=== PATIENT | female | born 1930 | race Caucasian/White ===

== ENCOUNTER 2016-05-06 17:37 | Inpatient (IN) | payer MEDICARE, OTHER ==
[~2016-05-06] VITALS: Ht 165.1 cm; Wt 80.7 kg
[~2016-05-06 17:37] MED LIST: ACET325T51 PO; ALBU8.5H2 INHALATION; AMLO5TAB2 PO; APIX5TAB PO; ATOR80TA PO; CALC1CAP PO; ESOM40CA41 PO; HYDR25TA4 PO; INSU100I13 SUBQ; LEVO125T2 PO; LISI-571 PO; LORA10CA PO; MAGN250T37 PO; METF1000 PO; METO-274 PO; TRAM50TA2 PO
[2016-05-06 17:40] VITALS: BP 158/86; PULSE 81; RESP 25; O2SAT 94
[2016-05-06 18:22] VITALS: BP 156/83; PULSE 78; RESP 23; O2SAT 94
--- NOTE | 2016-05-06 18:28 | DRSVH ---
PROCEDURE: X-RAY CHEST ONE VIEW, PORTABLE ([id number]) INDICATIONS: CHEST PAIN TECHNIQUE: One view of the chest was acquired. COMPARISON: [facility], , CHEST 1VW (PORTABLE), 03/06/2014, 15:16. [facility], CR, CHEST 1VW (PORTABLE), 03/10/2014, 8:39. FINDINGS: Surgical changes and devices: Dual-lead cardiac pacer is stable. Left shoulder arthroplasty. Lungs and pleura: No pleural effusions or pneumothorax. Interstitial prominence stable compared to p rior examinations. Mild cephalization of pulmonary vasculature. Mediastinum: Mediastinal contours appear normal. Heart size is enlarged. Bones and chest wall: No suspicious bony lesions. Overlying soft tissues appear unremarkable. IMPRESSION: Mild cephalization of pulmonary vasculature possibly representing early CHF. Dictated by: Claudia Arreola MD, PhD on 05/06/2016 at 18:25 Approved by: Claudia Arreola MD, PhD on 05/06/2016 at 18:26
[2016-05-06 18:35] LABS: BASOPHILS % (AUTO) 0.4 % (0-3); EOSINOPHILS % (AUTO) 0.9 % (0-5); MONOCYTES % (AUTO) 9.6 % (4-12); Mean Corpuscular Hemoglobin 28.1 pg (27.0-35.0); Mean Corpuscular Volume 84.5 fL (81-100); NEUTROPHILS % (AUTO) 60.3 % (40-74); Platelet Count 253 bil/L (150-400)
[2016-05-06 19:00] LABS: TROPONIN T < 0.010 ug/L (0.0-0.011)
--- NOTE | 2016-05-06 19:03 | ED.REPORT ---
HPI-Dyspnea / Wheezing Date of Service May 06, 2016 ED Provider: José Manuel Escobar MD An 86 year old female w/ a hx of DM, HTN, CHF, A-fib, and pacemaker who presents to the ED via EMS complaining of SOB for the last 4 weeks. Last night at 10pm her symptoms increased in severity and she felt like, "she was going to ." She was unable to fall asleep due to SOB, diaphoresis, and difficulty breathing. She was going to call an ambulance but she just moved to a new apartment and the phone wasn't set up yet. She took Metoprolol and HCTZ and was finally able to fall asleep. She has never felt symptoms this severe before and does not use O2 at home. At the ED, SAT 94% on 1L. She denies chest pain, fever , cough. She cannot lay down flat to sleep. Nursing Notes Stated Complaint: INCREASED SOB,CHEST PAIN Chief Complaint: Respiratory Distress Allergies: Coded Allergies: Sulfa (Sulfonamide Antibiotics) (Verified Allergy, Unknown, 05/06/16) amiodarone (Verified Adverse Reaction, Intermediate, 05/06/16) NAUSEA dronedarone (Verified Adverse Reaction, Intermediate, 05/06/16) losartan (Verified Adverse Reaction, Intermediate, angioedema, 05/06/16) Uncoded Allergies: Sulfa drug (Allergy, Intermediate, Rash,Itching,, 11/24/14) Scheduled Acetaminophen (Acetaminophen) 325 Mg Tablet 650 MG PO HS NEEDED Amlodipine (Amlodipine) 5 Mg Tablet 5 MG PO DAILY Apixaban (Eliquis) 5 Mg Tablet 5 MG PO BID Atorvastatin (Lipitor) 80 Mg Tablet 80 MG PO DAILY Calcium Carbonate/Vitamin D3 (Liquid Calcium with Vitamin D) 1 Each Capsule 2 EACH PO DAILY Esomeprazole Magnesium (Nexium) 40 Mg Capsule.dr 40 MG PO DAILY Hydrochlorothiazide (Hydrochlorothiazide) 25 Mg Tablet 25 MG PO DAILY Insulin Glargine (Lantus U100 Solostar Insulin Pen) 100 Unit/1 Ml Insuln.pen 30 UNIT SUBQ TID Levothyroxine (Synthroid) 125 Mcg Tablet 125 MCG PO DAILY Lisinopril (Lisinopril) 5 Mg Tablet 5 MG PO DAILY Magnesium Oxide (Magnesium Oxide) 250 Mg Tablet 250 MG PO BID Metformin (Glucophage) 1,000 Mg Tablet 1,000 MG PO BID Metoprolol Succinate ER (Metoprolol Succinate ER) 100 Mg Tab.er.24h 100 MG PO BID Scheduled PRN Albuterol HFA (Proair HFA) 8.5 Gm Hfa.aer.ad 2 PUFFS INHALATION Q4H PRN PRN For Shortness of Breath Loratadine (Claritin) 10 Mg Capsule 10 MG PO DAILY PRN PRN For Congestion Tramadol (Tramadol) 50 Mg Tablet 50-100 MG PO HS PRN PRN For Pain General Time Seen by MD: 19:02 Chief Complaint Shortness of breath Hx Obtained From: Patient Arrived By: Walk-in Sudden in Onset?: Yes Onset Occurred: Yesterday Symptom Duration: Since onset Past Medical History Past Medical History Notes: On Pradaxa Past Medical History Tachybradycardia syndrome s/p dual chamber pacemaker implantation Cosby's esophagus Idiopathic cardiomyopathy Polymyalgia rheumatica Atrial fibrillation with paroxysmal atrial flutter CHF with chronic orthopnea Reports: Congestive heart failure, Diabetes mellitus, GERD, Hyperlipidemia, Hypertension Past Surgical History 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 Reports: Appendectomy, Hysterectomy, Tonsillectomy Reports: Pacemaker insertion Smoking History Former Smoker Social History Alcohol Use: Denies alcohol use Drug Use: Denies drug use Other Social History: Lives alone, Local resident Ambulatory Status Independent Review of Systems Constitutional: Denies: Fever Respiratory: Reports: Shortness of breath, Denies: Non-productive cough Cardiovascular: Denies: Chest pain Skin: Reports Diaphoresis Complete sys rev & neg: except as marked. Physical Exam Physical Exam Notes: Initial Vital Signs Vital Signs (First) Date Time Temp Pulse Resp B/P Pulse Ox O2 Delivery O2 Flow Rate FiO2 05/06/16 17:40 36.7 81 25 158/86 94 Nasal Cannula 2 Initial VS: Reviewed Head / Eyes: Atraumatic, Normocephalic, PERRL ENT: Mucous membranes moist, Conjunctiva normal Skin: Warm, Dry Psychiatric: Mood/affect normal, Behavior normal General/Constitutional: Awake, Alert, Cooperative Neck Vascular: Positive: JVD mild Respiratory / Chest: No rhonchi, No wheezing Rales / Rhonchi: Positive: Rales bilateral bases bibasal crackles Cardiovascular: Heart rate NL, Regular rhythm, Heart sounds NL pacemaker implant Abdomen: Atraumatic, BS normoactive Lower Extremity / Pelvis / MS: Atraumatic, Inspection NL, No edema Interpretation & Diagnostics Lab Results Interpretation Result Diagram: 05/06/163 05/06/163 Test 05/06/16 18:23 White Blood Count 7.8th/mm3 (3.8-10.1) Red Blood Count 4.45mil/mm3 (3.90-5.20) Hemoglobin 12.5g/dL (12.0-15.6) Hematocrit 37.6% (35.0-46.0) Mean Corpuscular Volume 84.5fL (81-100) Mean Corpuscular Hemoglobin 28.1pg (27.0-35.0) Mean Corpuscular Hemoglobin Concent 33.2% (32.0-37.0) Red Cell Distribution Width 18.6% (12.3-15.4) Platelet Count 253bil/L (150-400) Neutrophils (%) (Auto) 60.3% (40-74) Lymphocytes (%) (Auto) 28.7% (14-46) Monocytes (%) (Auto) 9.6% (4-12) Eosinophils (%) (Auto) 0.9% (0-5) Basophils (%) (Auto) 0.4% (0-3) Activated Partial Thromboplast Time 25.0sec (22.8-33.0) Sodium Level 136mEq/L (134-144) Potassium Level 4.0mEq/L (3.5-5.2) Chloride Level 98mEq/L (97-108) Carbon Dioxide Level 20mmol/L (18-29) Blood Urea Nitrogen 15mg/dL (8-27) Creatinine 0.82mg/dL (0.57-1.00) Estimat Glomerular Filtration Rate 95mL/min (>59) Glucose Level 344mg/dL (60-99) Calcium Level 7.8mg/dL (8.5-10.1) Magnesium Level 1.7mg/dL (1.6-2.6) Total Bilirubin 0.4mg/dL (0.0-1.2) Aspartate Amino Transf (AST/SGOT) 28U/L (0-50) Alanine Aminotransferase (ALT/SGPT) 30U/L (0-32) Alkaline Phosphatase 83U/L (25-165) Troponin T < 0.010ug/L (0.0-0.011) Pro-B-Type Natriuretic Peptide 8607pg/mL (0-738) Total Protein 6.6g/dL (6.4-8.4) Albumin 3.6g/dL (3.4-5.0) Thyroid Stimulating Hormone (TSH) 0.222uIU/mL (0.450-4.500) ECG Interpretation Time: 18:17 Interpreted by: ED physician Rhythm / Conduction: Atrial fibrillation (rate 71), Ventricular paced rhythm X-Ray Chest Interpretation Chest Xray Interpretation: IMPRESSION: Mild cephalization of pulmonary vasculature possibly representing early CHF. Dictated by: Claudia Arreola MD, PhD on 05/06/2016 at 18:25 Approved by: Claudia Arreola MD, PhD on 05/06/2016 at 18:26 View: Portable Interpretation / Wet Read by: Interpret - Radiologist Re-Eval/Medical Decision Med Decision/Clinical Course Dyspneic with low RA sat, normal trop and elevated BNP. Does not appear infected or to have acue ischemia. Lasix 20m IV given. Admit to hospitalist Re-Evaluation/Progress : Time of Eval: 20:03 Patient Status: Condition unchanged Re-Evaluation/Progress Note: Pt rechecked. Plan for water pill and need for admission. Code status discussed: No code Pt understands and agrees with plan. All questions addressed. 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 Counseled Regarding: Diagnosis, Lab results, Need for admission Discharge & Departure Impression: Primary Impression: CHF (congestive heart failure) Congestive heart failure type: unspecified congestive heart failure type Congestive heart failure chronicity: unspecified congestive heart failure chronicity Qualified Code: I50.9 - Heart failure, unspecified Disposition: ADMITTED TO HOSPITAL Discharge Condition All VS Reviewed: Yes Condition: Stable Referrals: Jaquan Santamaria DO (PCP) Yaquelin Sparks MD Scribe Attestation Portion of this note were transcribed by Elodia Espinoza. I, Dr. Escobar, personally performed the history, physical exam, and medical decision-making: I reviewed and confirmed the accuracy for the information in the transcribed note. Signed by: hansa Manrique, 05/06/16 2100 copies to: Jaquan Santamaria DO; Yaquelin Sparks MD, Donald L MD May 06, 2016 19:03 Elodia Espinoza May 06, 2016 19:22
[2016-05-06 19:05] LABS: Magnesium 1.7 mg/dL (1.6-2.6)
[2016-05-06] MEDS ORDERED: Furosemide 10 mg/mL 4 mL Inj IVPUSH ONE (20:20)
[2016-05-06] MEDS ORDERED: Polyethylene Glycol (PEG) 17 Gm Powder PO PRN (21:00)
[2016-05-06] MEDS ORDERED: Alum-Mag Hydrox-Simeth 30 mL Suspension PO PRN ×2 (21:00→21:05)
[2016-05-06] MEDS ORDERED: Senna-Docusate 8.6-50 mg Tablet PO PRN (21:00)
[2016-05-06] MEDS ORDERED: Ondansetron 2 mg/mL 2 mL Inj IVPUSH PRN ×2 (21:00→21:05)
[2016-05-06 21:01] VITALS: BP 133/62; PULSE 73; RESP 25; O2SAT 95
--- NOTE | 2016-05-06 21:16 | PCM.HPMED ---
Subjective Date of Service May 06, 2016 Primary Provider: Admitting Physician: Allan Peter MD Primary Care Physician: Jaquan Santamaria DO Attending Physician: Allan Peter MD Admit Status: From the Emergency Department, Remote Telemetry Chief Complaint: Increased SOB History of Present Illness: Ms. Fe Tellez is an 86 year old pleasant woman with history of DM, HTN, CHF , A-fib, and tachybradycardia syndrome s/p dual chamber pacemaker placement who presents to the ED via EMS complaining of progressively worsening SOB in the last 3 months. Before bed last night, she could not breathe and felt like, "she was going to ." She was unable to fall asleep due to SOB, diaphoresis, and difficulty breathing. She was going to call an ambulance but she just moved to a new apartment and the phone wasn't set up yet. She took her home dose of Metoprolol and HCTZ and was finally able to fall asleep. Today, she saw her PCP , Dr. Jaquan Santamaria, and was sent to the ED from his office. Patient reports to have chronic dyspnea for months, but it has not been this bad. She does not use O2 at home and is pretty independent at baseline. She uses Albuterol inhaler as needed for SOB. Patient reports worsening lower extremity edema, orthopnea, and weight gain, but denies cough, chest pain, fever, chills, nausea, vomiting, abdominal pain, or headache. No history of COPD or asthma. She had been to the hospital several times for the Afib, but this is the first time she is here for CHF. She reports to have an Echo done 2 weeks ago, but it is not on her record. She is on Apixaban for anticoagulation. She got both the Flu and Pneumonia shots this year, but got Flu 2-3 months ago. She used to inject Lantus 5 units TID, but has stopped doing so 6 weeks ago due to low blood glucose at night. In the ED, she had temp 36.7, Pulse 81, RR 25, BP 158/86, and SAT 94% on 1L. WBC wnl. CMP normal except for BG of 344. ProBNP 8607. CXR is suggestive of CHF. Patient received a dose of Lasix 40 Review of Systems: A comprehensive review of systems was conducted with the patient and found to be negative except as above in the History of Present Illness. Allergies Coded Allergies: Sulfa (Sulfonamide Antibiotics) (Verified Allergy, Unknown, 05/07/16) amiodarone (Verified Adverse Reaction, Intermediate, 05/07/16) NAUSEA dronedarone (Verified Adverse Reaction, Intermediate, 05/07/16) losartan (Verified Adverse Reaction, Intermediate, angioedema, 05/07/16) Uncoded Allergies: Sulfa drug (Allergy, Intermediate, Rash,Itching,, 11/24/14) Home Medications Per [facility] Medication Name Directions ALBUTEROL SULFATE HFA 90 MCG/ACTUATION AEROSOL INHALER INHALE 2 PUFF BY INHALATION ROUTE EVERY 4 - 6 HOURS NEEDED Contour Test Strips #100/boxSTRIP use to test blood sugar 2-4 times daily Eliquis 5 mg tablet take 1 tablet by oral route 2 times every day Humalog KwikPen 100 unit/mL subcutaneous 10 units sc tid with meals Lantus Solostar 100 unit/mL (3 mL) subcutaneous insulin pen 20 units sc bid Lipitor 80 mg tablet Take 1 tablet by mouth daily for high cholesterol. Liquid Calcium with Vitamin D 600 mg calcium-200 unit capsule 2 po daily magnesium oxide 250 mg tablet one pill twice a day, or you can take them both at once metformin 1,000 mg tablet TAKE 1 TABLET TWICE A DAY WITH MORNING AND EVENING MEALS metoprolol succinate ER 100 mg tablet,extended release 24 hr Take 2 pills in AM and 1 in PM Nexium 40 mg capsule,delayed release 1 po bid Synthroid 125 mcg tablet take 1 tablet by oral route every day TYLENOL EXTRA STRENGTH take 1 (650mg) tablet by oral route every 6 hours as needed PMH Per [facility] Migraine Diverticulitis Acquired renal cystic disease Microscopic hematuria Diabetes mellitus type 2, uncontrolled Constipation Tachy-jaime syndrome Angioedema Murmur Osteoporosis Hypoparathyroidism Osteoarthritis HTN (hypertension) CAD Tubular adenoma Complete heart block GERD (gastroesophageal reflux disease) Cosby esophagus PMR (polymyalgia rheumatica) Afib Hypothyroid Also GIST tumor Surgical History 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 Reports: Appendectomy, Hysterectomy, Tonsillectomy Reports: Pacemaker insertion Family History Patient denies significant family history of DM and cardiovascular disease. Social History Hx Alcohol Use: No Hx Substance Use: No Hx Tobacco Use: No Smoking Status: Former Smoker (smoked for a short time in her teens) Living Arrangement: Alone Additional Information She lives by herself in an apartment. Her son visits her sometimes. New PCP is Dr. Jaquan Santamaria. Clinical Research Associate is Dr. Dnucan. Exam Vital Signs Vital Sign - Last Date Time Temp Pulse Resp B/P Pulse Ox O2 Delivery O2 Flow Rate FiO2 05/06/16 21:01 36.3 73 25 133/62 95 Nasal Cannula 2 Exam General: No acute distress, well-developed, well-nourished, pleasant, appropriately interactive HEENT: Normocephalic, atraumatic. External ears without defect. Pupils equal, round, and reactive to light and accommodation. Anicteric sclerae, moist conjunctivae, and no lid lag. Dry mucosa. Neck: Supple with full range of motion. Small jugular venous distension. No lymphadenopathy or thyromegaly. Cardiovascular: Chest wall with pacemaker implant palpated. Regular rate and rhythm with no murmurs, rubs, or gallops appreciated Pulmonary: Clear to auscultation with mild bibasilar rales. No wheezes or rhonchi. Normal respiratory effort with no use of accessory muscles. Abdomen: Bowel tones present. Soft, nontender, nondistended. No hepatosplenomegaly or masses appreciated. Extremities: +1/mild pitting edema in bilateral lower extremities around the wells. No pedal edema. No clubbing, cyanosis, edema, or lymphadenopathy appreciated. Skin: Normal temperature, turgor, and texture; no rash, ulcers, or subcutaneous nodules appreciated. Neurological: Cranial nerves grossly intact. Normal muscle strength, tone, and bulk. Reflexes, coordination, and sensory function within normal limits. No known gait impairment. Psychiatric: Normal mood and affect. Alert and oriented to person, place, and time. Lab and Diagnostics Result Diagram: 05/06/16182205/06/161822 X-Rays, CTs and MRIs PROCEDURE: X-RAY CHEST ONE VIEW, PORTABLE IMPRESSION: Mild cephalization of pulmonary vasculature possibly representing early CHF. Dictated by: Claudia Arreola MD, PhD on 05/06/2016 at 18:25 Approved by: Claudia Arreola MD, PhD on 05/06/2016 at 18:26 12-lead ECG Afib with rate of 71 on EKG. Ventricular paced rhythm. Cardiac Echo Impressions Per [facility], last Echo was in 07/2014 that showed normal Echo interpreted by Monika March. No EF estimation. Assessment & Plan 86 year old pleasant woman with history of DM, HTN, CHF, A-fib, and tachybradycardia syndrome s/p dual chamber pacemaker placement who presents to the ED via EMS complaining of worsening SOB in the last 3 months. 1. Progressive dyspnea, acute on chronic, present on admission, active. - Likely secondary to CHF exacerbation. - Treat the underlying cause(s) - O2 supplement available. Keep O2>90%. - Albuterol inhaler PRN 2. Acute on chronic CHF exacerbation, present on admission, active. - Unknown if diastolic or systolic dysfunction. - Patient presents with worsening lower extremity edema ("skinny legs" at baseline), increasing dyspnea, orthopnea, and fatigue. - BNP of 8607 and CXR consistent with CHF - Last Echo per [facility] was in 07/2014 that was normal. No EF estimation. - Will repeat Echo in the morning. - Patient is not on Lasix at home. She received one dose of Lasix 40mg IV in the ER. Will continue Lasix 40mg IV daily. - Potassium normal at 4 on admission. Will continue to monitor and replete as needed. - Resume home dose of Metoprolol and Lisinopril after med rec. - Strict I/O and daily standing weight. 3. Chronic atrial fibrillation, present on admission, stable. - Rate controlled with Metoprolol. HR is 71. - Continue Metoprolol and Apixaban - Monitor Telemetry 4. Insulin-using Diabetes Mellitus, Type 2, chronic,uncontrolled. -Last HgbA1c 13.0 in 11/2015 per [facility]. Uncontrol due to noncompliance. -Check A1c. -Hold home Metformin. -Will start Lantus 5 units HS and gradually titrate up. Also placed on high correctional insulin in the hospital. -Diabetic education ordered. -Heart healthy/diabetic diet. 5. Surgical induced hypothyroidism, chronic. - Check TSH and free T4 - Resume home Levothyroxine 125mcg after med rec. 6. HTN, chronic, stable. -Resume home Amlodipine, Lisinopril, HCTZ, Metoprolol after med rec. 7. Hyperlipidemia, chronic, presume stable. - Continue Atorvastatin. - Check lipid panel in the morning. 8. Medication reconciliation: need to be done by day team. CODE STATUS: DNR/DNI per the patient. Patient is admitted under inpatient status with expected length of stay greater than 2 midnights due to severity of presenting symptoms, risk of adverse event, and complexity of treatment plan. Pain Evaluation: Adequate Pain Control GI Prophylaxis: Proton Pump Inhibitor VTE Prophylaxis: Other (Apixaban) Resuscitation Status: DNR/DNI:Do Not Resuscitate/Intubate Attending Statement The patient was seen and examined together with Dr. Moreno on 05/06 and I agree with the history, exam and plan as outlined in the note above. copies to: Jaquan Santamaria Ngochanh H DO May 06, 2016 21:16 Allan Peter MD May 06, 2016 23:02 VTE Prophylaxis: Other (Apixaban) Resuscitation Status: DNR/DNI:Do Not Resuscitate/Intubate Scooter Moreno DO May 06, 2016 21:16
[2016-05-06 21:20] VITALS: PULSE 72
[2016-05-06 21:33] VITALS: BP 151/83; PULSE 73; RESP 20; O2SAT 97
[2016-05-06] MEDS ORDERED: Glucose 40% Oral Gel 15 Gm Tube PO PRN (23:55)
[2016-05-07] VITALS (7 sets, daily range): BP systolic 123–152; BP diastolic 70–91; PULSE 60–95; RESP 20; O2SAT 93–98
[2016-05-07] MEDS: Sodium Chloride LOK Flush 10 mL Syringe IVFLUSH SCH ×4 (00:49→20:32)
[2016-05-07] MEDS ORDERED: Albuterol 2.5 mg/3 mL Inhalation Solution NEB PRN (00:52)
[2016-05-07 06:17] LABS: BASOPHILS % (AUTO) 0.5 % (0-3); EOSINOPHILS % (AUTO) 1.8 % (0-5); MONOCYTES % (AUTO) 10.5 % (4-12); Mean Corpuscular Volume 84.6 fL (81-100); NEUTROPHILS % (AUTO) 55.1 % (40-74); Platelet Count 265 bil/L (150-400)
[2016-05-07 06:34] LABS: Magnesium 1.6 mg/dL (1.6-2.6)
[2016-05-07] MEDS ORDERED: Furosemide 10 mg/mL 4 mL Inj IVPUSH SCH (08:30)
[2016-05-07] MEDS: Insulin LISPRO 300 Unit/3 mL Inj SUBQ SCH ×4 (09:00→20:31)
[2016-05-07] MEDS ORDERED: MeTOProlol XL 50 mg ER24 Tablet PO SCH (10:35)
--- NOTE | 2016-05-07 11:29 | PCM.PNMED ---
Subjective Date of Service May 07, 2016 Subjective Fe reports she is feeling much better this morning and her breathing is back to baseline. She does not have any CP, dizziness, or increased swelling. She reports that she had just moved into a new apt that is on the 3rd floor, so getting up and down has been a bit more exhausting. She is also living alone now and it has made her slightly more anxious, so when she had some more shortness of breath yesterday, she became more anxious and also had chest pressure. All of these symptoms have improved this morning and she would like to go home when possible. Exam Vital Signs Vital Sign - Last Date Time Temp Pulse Resp B/P Pulse Ox O2 Delivery O2 Flow Rate FiO2 05/07/16 09:35 36.6 95 20 135/75 98 Room Air 05/07/16 06:39 2.00 Exam General: Well-developed, well-nourished, pleasant elderly female who appears in NAD while laying down at 45 degrees, appropriately interactive HEENT: Normocephalic, atraumatic. Anicteric sclerae, moist conjunctivae, and no lid lag. Dry mucosa. Neck: Supple with full range of motion. No JVD noted at 45 degrees Cardiovascular: Chest wall with pacemaker implant palpated. Regular rate and rhythm with no murmurs, rubs, or gallops appreciated Pulmonary: Clear to auscultation with mild bibasilar rales. No wheezes or rhonchi. Normal respiratory effort with no use of accessory muscles. Abdomen: Bowel tones present. Soft, nontender, nondistended. No hepatosplenomegaly or masses appreciated. Extremities: Trace bilateral pedal edema, No clubbing, cyanosis, edema Skin: Normal temperature, turgor, and texture; no rash, ulcers, or subcutaneous nodules appreciated. Neurological: Cranial nerves grossly intact. Normal muscle strength, tone, and bulk. Reflexes, coordination, and sensory function within normal limits Psychiatric: Normal mood and affect. Alert and oriented to person, place, and time. IVs and Medications Medications Reviewed: Medications were reviewed in detail Lab and Diagnostics Result Diagram: 05/07/1640 05/07/16 0540 X-Rays, CTs and MRIs PROCEDURE: X-RAY CHEST ONE VIEW, PORTABLE IMPRESSION: Mild cephalization of pulmonary vasculature possibly representing early CHF. Dictated by: Claudia Arreola MD, PhD on 05/06/2016 at 18:25 Approved by: Claudia Arreola MD, PhD on 05/06/2016 at 18:26 12-lead ECG Afib with rate of 71 on EKG. Ventricular paced rhythm. Cardiac Echo Impressions Per [facility], last Echo was in 07/2014 that showed normal Echo interpreted by Monika March. No EF estimation. Assessment & Plan 86 year old pleasant woman with history of DM, HTN, CHF, A-fib, and tachybradycardia syndrome s/p dual chamber pacemaker placement who presents to the ED via EMS complaining of worsening SOB in the last 3 months. 1. Progressive dyspnea, acute on chronic, present on admission, Improved - Likely due to chronic progressive dyspnea, mild CHF exacerbation, and increased stress and anxiety of living alone now - Treat the underlying cause(s) - O2 supplement available. Keep O2>90%. - Albuterol inhaler PRN 2. Acute on chronic CHF exacerbation, present on admission, active. - Patient reports that her Home Mortgage Disclosure Act Specialist diagnosed her with CHF recently. - Patient presents with worsening lower extremity edema ("skinny legs" at baseline), increasing dyspnea, orthopnea, and fatigue. - BNP of 8607 and CXR consistent with CHF - Last Echo per [facility] was in 07/2014 that was normal. No EF estimation. - Will repeat Echo in the morning. - Patient was not on Lasix at home. She received one dose of Lasix 40mg IV in the ER. Will continue Lasix 40mg IV daily today - Potassium normal at 4 on admission. Will continue to monitor and replete as needed. - Resume home dose of Metoprolol and Lisinopril after med rec. - Strict I/O and daily standing weight. - Cardiology consulting on patient today. 3. Chronic atrial fibrillation, present on admission, stable. - Rate controlled with Metoprolol. HR is 71. - Continue Metoprolol and Apixaban - Monitor Telemetry 4. Insulin-using Diabetes Mellitus, Type 2, chronic,uncontrolled. -Last HgbA1c 13.0 in 11/2015 per [facility]. Uncontrol due to noncompliance. -A1c was 6.0 this morning. -Hold home Metformin. -Will start Lantus 5 units HS and gradually titrate up. Also placed on high correctional insulin in the hospital. -Diabetic education ordered. -Heart healthy/diabetic diet. -Fasting BG noted to be 223 this morning although A1c only 6.0 5. Surgical induced hypothyroidism, chronic. - Check TSH - 0.22 and free T4 - 1.89 - Will plan to reduce Levothyroxine dosage 6. HTN, chronic, stable. -Resume home Amlodipine, Lisinopril, HCTZ, Metoprolol after med rec. 7. Hyperlipidemia, chronic, presume stable. - Continue Atorvastatin. - Elevated Trigs and LDL of 98 today. CODE STATUS: DNR/DNI per the patient. Dispo: Likely discharge tomorrow if medically stable. Pain Evaluation: Adequate Pain Control GI Prophylaxis: Proton Pump Inhibitor VTE Prophylaxis: Other (Apixaban) VTE Mechanical Devices: Intermittant Pneumatic CD Resuscitation Status: DNR/DNI:Do Not Resuscitate/Intubate Attending Statement The patient was seen and examined together with Dr. Hernandez on 05/07/2016 and I agree with the history, exam and plan as outlined in the note above. Barrie Hernandez DO May 07, 2016 11:29 Kane Thornton MD May 08, 2016 11:19
[2016-05-07] MEDS ORDERED: INSU100V7 SUBQ (12:23)
[2016-05-07] MEDS ORDERED: CHOL100043 PO (12:26)
[2016-05-07] MEDS ORDERED: Magnesium Sulf 2 Gm/50mL Water 2 GM in IV Premix 1 EACH IV ONE (13:20)
--- NOTE | 2016-05-07 14:14 | CONS ---
[address] [address] CONSULTATION REPORT PATIENT: JOSETTE JASSO : 1930 MR#: [id number] ADMIT: 05/06/2016 JOB ID: [id number] DATE OF SERVICE: 05/07/2016 CHIEF COMPLAINT: Shortness of breath. HISTORY OF PRESENT ILLNESS: The patient is a delightful 86-year-old woman with chronic atrial fibrillation and rapid history of difficult to control rate, status post AV junction ablation. She has a dual-chamber Medtronic permanent pacemaker. Cardiology is consulted to assist with worsening shortness of breath, briefly she says for the past three months the problem has been getting worse. She believes she gained 10 pounds based on her home scale. She relocated from her home on [address] to an apartment in [place], and she says that when she climbs up the stairs, she has been getting worsening shortness of breath. Cardiology is consulted to assist with management. PAST MEDICAL HISTORY: 1. Paroxysmal atrial fibrillation refractory to medical therapy, status post multiple cardioversions. Eventually, she developed chronic atrial fibrillation with rffbrtrcy-xy-brcrkrm rate and underwent a paced AV junction ablation with Dr. Heart December 09, 2015. 2. Permanent pacemaker implanted November 13, 2013. This is a Medtronic device currently programmed in VVI mode with 99%V pacing. 3. Paroxysmal atrial flutter, status post flutter ablation March 2014. 4. History of atrial septal defect, status post percutaneous closure in 2001. 5. Cardiomyopathy. Most recent catheterization in 2009 was reassuring. She has mild mid LAD disease, but it was not hemodynamically significant. 6. Most recent echocardiogram performed February 2014 demonstrated EF of 50% to 55%. 7. Diabetes - on insulin and metformin - uncontrolled. Most recent hemoglobin A1c was 13% as of November 2015. 8. Hyperlipidemia, controlled. Most recent lipids as of November 2015 showed total cholesterol 187, triglycerides 122, HDL 59, LDL 104. 9. Hypothyroidism - overreplaced with a low TSH and elevated free T4. 10. Reflux. 11. Cosby's esophagus. 12. 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 13. Incidental 5 mm gastrointestinal stromal tumor that is monitored by Oncology. 14. Status post partial parathyroidectomy. 15. Appendectomy. 16. Tonsillectomy. 17. Left humerus fracture with hemiarthroplasty. 18. Vaginal hysterectomy and right salpingo-oophorectomy. 19. Thyroidectomy. FAMILY HISTORY: Brother with diabetes. Father with Alzheimer's. Mother during World War II. Sister with colon cancer. SOCIAL HISTORY: The patient is a former smoker. She lives independently. She has supportive family. She lives in [place] where she recently relocated from [place]. HOME MEDICATIONS: 1. Lipitor 80 mg daily. 2. Toprol-XL 600 mg tablets, 2 tablets in the morning 1 tablet at night. 3. Eliquis 5 mg twice a day. 4. Metformin 1 g twice a day. 5. Lispro sliding scale insulin. 6. Synthroid 125 mcg daily. 7. Nexium 40 mg twice a day. 8. Albuterol metered dose inhaler. CURRENT MEDICATIONS: In the hospital: 1. Lasix 40 mg IV daily. 2. Eliquis 5 mg twice a day. 3. Lantus 5 units daily. REVIEW OF SYSTEMS: No bright red blood per rectum. No hematuria. Positive anxiety. Positive dyspnea on exertion. No chest pain. Otherwise, 10-point review of systems is negative. PHYSICAL EXAMINATION: A very pleasant woman in no apparent distress. Temperature 36.6, blood pressure 125/70 up to 143/78, pulse 70 up to 95 beats per minute. She is satting 93% to 98% on 2 liters nasal cannula. Well-nourished, in no apparent distress. Neck is supple. No lymphadenopathy. No carotid bruits. Heart: Normal S1, S2. No murmurs. Lungs: Clear to auscultation anteriorly. Abdomen is soft, positive bowel sounds. No hepatosplenomegaly. Extremities: No clubbing, cyanosis, or edema. Skin: No rashes or lesions. which is normal for her. LABORATORIES: Reviewed. CBC is normal. Creatinine at this time is 0.8, potassium 3.5. ProBNP elevated at 8607. TSH is 0.258. Free T4 of 1.89. Transaminases are normal. A1c is 6 at this time. Magnesium 1.6. ASSESSMENT AND PLAN: An 86-year-old complex cardiac patient admitted with clinically what appears to be acute decompensated heart failure. She is responding to IV diuresis with Lasix 40 mg daily. She put out 1 L out more than in. Her weight at this time is 80.7 kg. Of note, her dry weight when she was doing well in clinic in December 2015 was 86.85 kg, so actually she actually lost weight between then and now, unless it is a scale issue. Echocardiogram has been ordered and is pending. Unfortunately, she is not a good candidate for OLESYA inhibitor or angiotensin receptor nallely due to history of angioedema on losartan. I think it is a good idea to restart her beta nallely. Continue loop diuretic and will make further recommendations once her echocardiogram is completed. EKG is uninterpretable due to chronic V pacing at 85 beats per minute. Thank you very much for the opportunity to evaluate her.
--- NOTE | 2016-05-07 17:36 | DRSVH ---
[facility] [address] [place] [address] Echocardiogram Report Name: JOSETTE JASSO MStudy Date: 05/07/2016 Height: 65 in Hospital Exam Location: [facility] Weight: 178 lb Gender: Female BSA: 1.9 m2 : 1930 Age: 86 yrs BP: 125/70 mmHg Reason For Study: DYSPNEA, CHF Ordering Physician: HOSPITALIST [facility] Performed By: Arelis Velasquez Referring Physician: Yaquelin Sparks Interpretation Summary Afib with V pacing at 70 bpm. Normal LV size and mild concentric LVH. There is basal inferior and basal inferoseptal akinesis; there is mid-inferior, mid-inferoseptal, distal septal, mid-anteroseptal hypokinesis. All remaining segments demonstrate normal wall motion. EF is 40-45%. Severe LA enlargement; mild RA enlargement. Mitral valve leaflets are normal. There is moderate central MR. Aortic valve leaflets are normal; no regurgitation or stenosis. Tricuspid valve leaflets are normal with a pacing lead traversing the valve; there is moderate central tricuspid regurgitation. Estimated PA systolic pressure is 32 mm Hg assuming RA pressure of 8 mm Hg. Comparison to prior echo 02/28/2014 is difficult because prior echo was done without the benefit of echo-contrast Definity. Also, pt is 100% ventricularly paced during current study, whereas she was V sensed during prior study. Compared to prior study performed 02/28/2014 LV is markedly less dynamic. Inferior focal wall motion abnormalities are more pronounced; septal wall motion abnormalities are also more pronounced. Procedure: A two-dimensional transthoracic echocardiogram with color flow and Doppler was performed. The apical views were difficult to obtain and are suboptimal in quality. A contrast injection of Definity was performed to improve assessment of LV function. Contrast was injected into an intravenous site in the right arm. A total of 3 cc of contrast was given. Comparison is made with the echocardiogram of 02-28-2014. The patient has a paced rhythm. The patient did well with the Definity Contrast. Left Ventricle: The left ventricle is normal in size. Left ventricular wall thickness is mildly increased. The septum and inferior left ventricular johnson have abnormal function. Right Ventricle: The right ventricle grossly appears normal in size with probable normal systolic function. There is a pacemaker lead in the right ventricle. Atria: The left atrium is severely dilated. The right atrium is moderately dilated. There is no Doppler evidence for an atrial septal defect. Mitral Valve: The mitral valve leaflets appear mildly thickened, but open well. There is mild mitral annular calcification. There is moderate mitral regurgitation. Aortic Valve: The aortic valve is trileaflet. The aortic valve opens well. There is no aortic regurgitation. Tricuspid Valve: The tricuspid valve leaflets are thin and pliable. There is moderate tricuspid regurgitation. The right ventricular systolic pressure is estimated at 32 mmHg assuming a right atrial pressure of 8 mm Hg. Pulmonic Valve: The pulmonic valve is not well visualized. There is trace pulmonic regurgitation. Great Vessels: The aortic root is normal size. The dimensions of the ascending aorta are normal. The pulmonary is not well visualized. The IVC is dilated (diameter is greater than 2.1 cm) yet it collapses greater than 50% with a sniff. This suggests a right atrial pressure of 8 mm Hg. Pericardium/ Pleura There is no pericardial effusion. There is no pleural effusion. MMode/2D Measurements & Calculations LVIDd: 5.5 cm LA dimension RA long axis LVOT diam IVSd: 1.3 cm LVPWd: 1.1 cm LA A2 area RA area AoV Opening : 23.5 cm Ao root diam LA A4 area RA vol: 82.2 ml RA asc Aorta Diam LA length (vol) : 43.7 mm2 LA vol: 194.7 ml LA vol index : 103.4 ml/m2 IVC diam: 2.3 cm LV tejada. diameter/BSA (cm/m^2): 2.9 Doppler Measurements & Calculations Ao V2 max MV E max ruben Pulm A Revs Dur TR max ruben : 150.0 cm/sec : 124.5 cm/sec : 245.8 cm/sec Ao max P.0 mmHg TR max PG Ao mean P.8 mmHg MR ERO: 0.25 cm2 : 24.2 mmHg LVOT Max Ruben PA V2 max : 79.8 cm/sec : 84.8 cm/sec PA mean PG CARLI(I,D): 2.7 cm sev ratio: 0.51 PA Accel Time : 0.21 sec Ao V2 mean LV V1 max PG MR flow rate PA V2 mean : 104.3 cm/sec : 51.9 cm/sec Ao V2 VTI: 30.7 cm LV V1 VTI: 15.6 cm: 117.0 cm3/sec MR PISA radius CARLI(V,D): 2.8 cm2 CARLI indexed to BSA (cm^2/m^2): 1.4 Reading Physician:05:11 PM
[2016-05-07] MEDS: MeTOProlol XL 50 mg ER24 Tablet PO SCH (20:31)
[2016-05-07] MEDS ORDERED: Insulin GLARgine 100 Unit/mL Syringe SUBQ SCH ×2 (21:00)
[2016-05-08] VITALS (8 sets, daily range): BP systolic 110–140; BP diastolic 62–79; PULSE 70–74; RESP 18–20; O2SAT 90–93
[2016-05-08 06:07] LABS: BASOPHILS % (AUTO) 0.5 % (0-3); EOSINOPHILS % (AUTO) 3.5 % (0-5); MONOCYTES % (AUTO) 13.5 % (4-12); Mean Corpuscular Volume 84.3 fL (81-100); NEUTROPHILS % (AUTO) 46.7 % (40-74); Platelet Count 272 bil/L (150-400)
[2016-05-08 06:24] LABS: APPEARANCE,URINE CLEAR (CLEAR,HAZY); COLOR,URINE STRAW (YELLOW); OCCULT BLOOD,URINE NEGATIVE (NEGATIVE); UROBILINOGEN,URINE NORMAL (NORMAL)
[2016-05-08] MEDS: Insulin LISPRO 300 Unit/3 mL Inj SUBQ SCH ×4 (07:45→21:15)
[2016-05-08] MEDS: MeTOProlol XL 50 mg ER24 Tablet PO SCH ×2 (07:46→21:16)
[2016-05-08] MEDS: Sodium Chloride LOK Flush 10 mL Syringe IVFLUSH SCH ×3 (07:46→23:32)
[2016-05-08] MEDS: Potassium Chloride 20 mEq SR Tablet PO SCH (09:51)
--- NOTE | 2016-05-08 10:57 | PCM.PNMED ---
Subjective Date of Service May 08, 2016 Subjective Uneventful overnight. Fe reports she feel improved this morning, although she still feels mildly short of breath. She has not had any chest pain, fevers, or headaches. She has been eating and drinking well. She has not been up and about much due to [place]. Exam Vital Signs Vital Sign - Last Date Time Temp Pulse Resp B/P Pulse Ox O2 Delivery O2 Flow Rate FiO2 05/08/16 09:25 71 05/08/16 09:16 36.7 18 119/65 90 Room Air 05/07/16 14:00 Intake and Output 05/07/16 05/07/16 05/08/16 Cumulative From/Thru 15:00 23:00 07:00 05/06/16 17:40 - 05/08/16 06:52 Intake Total 400 ml 1100 ml 400 ml 1900 ml Output Total 1450 ml 700 ml 800 ml 2950 ml Balance -1050 ml 400 ml -400 ml -1050 ml Intake Oral 400 ml 1100 ml 400 ml 1900 ml Output Urine Total 1450 ml 700 ml 800 ml 2950 ml # Bowel Movements 0 1 0 1 Exam General: Well-developed, well-nourished, pleasant elderly female who appears in NAD while laying down at 45 degrees, appropriately interactive HEENT: Anicteric sclerae, moist conjunctivae, and no lid lag. Neck: Supple with full range of motion. No JVD noted at 45 degrees Cardiovascular: Chest wall with pacemaker implant palpated. Regular rate and rhythm with no murmurs, rubs, or gallops appreciated Pulmonary: Clear to auscultation bilaterally. No wheezes or rhonchi. Normal respiratory effort Abdomen: Bowel tones present. Soft, nontender, nondistended. Extremities: Trace bilateral pedal edema, No clubbing, cyanosis Neurological: Cranial nerves grossly intact. Normal muscle strength, tone, and bulk. Psychiatric: Normal mood and affect. Alert and oriented to person, place, and time. IVs and Medications Medications Reviewed: Medications were reviewed in detail Lab and Diagnostics Result Diagram: 05/08/1652605/08/16526 X-Rays, CTs and MRIs PROCEDURE: X-RAY CHEST ONE VIEW, PORTABLE IMPRESSION: Mild cephalization of pulmonary vasculature possibly representing early CHF. Dictated by: Claudia Arreola MD, PhD on 05/06/2016 at 18:25 Approved by: Claudia Arreola MD, PhD on 05/06/2016 at 18:26 12-lead ECG Afib with rate of 71 on EKG. Ventricular paced rhythm. Cardiac Echo Impressions Per [facility], last Echo was in 07/2014 that showed normal Echo interpreted by Monika March. No EF estimation. Assessment & Plan 86 year old pleasant woman with history of DM, HTN, CHF, A-fib, and tachybradycardia syndrome s/p dual chamber pacemaker placement who presents to the ED via EMS complaining of worsening SOB in the last 3 months. 1. Progressive dyspnea, acute on chronic, present on admission, Improved - Likely due to chronic progressive dyspnea, mild CHF exacerbation, and increased stress and anxiety of living alone now - O2 supplement available. Keep O2>90%. - Albuterol inhaler PRN - PT ordered for evaluation 2. Acute on chronic CHF exacerbation, present on admission, active. - Patient reports that her Fleet Driver diagnosed her with CHF recently. - Patient presents with worsening lower extremity edema ("skinny legs" at baseline), increasing dyspnea, orthopnea, and fatigue. - BNP of 8607 and CXR consistent with CHF - Last Echo per next gen was in 07/2014 that was normal. No EF estimation. - Patient was not on Lasix at home. She received one dose of Lasix 40mg IV in the ER. Transitioned to PO Lasix daily - Resume home dose of Metoprolol and Lisinopril - Strict I/O and daily standing weight. - Dr. Sparks will consult on patient again, appreciate time and recommendations. - Echo results as above. 3. Chronic atrial fibrillation, present on admission, stable. - Rate controlled with Metoprolol. HR is 71. - Continue Metoprolol and Apixaban - Monitor on Telemetry 4. Insulin-using Diabetes Mellitus, Type 2, chronic,uncontrolled. -Last HgbA1c 13.0 in 11/2015 per [facility]. Uncontrol due to noncompliance. -Fasting BG noted to be 223 this morning although A1c only 6.0, no history of steroid usage. -FBG was in the 90s this morning with resumption of her 30 units of HS Lantus. Will decrease to 25 units to prevent over-control and hypoglycemia. 5. Surgical induced hypothyroidism, chronic. - Check TSH - 0.22 and free T4 - 1.89 - Levothyroxine reduced to 100mcg daily. 6. HTN, chronic, stable. -Resume home Amlodipine, Lisinopril, HCTZ, Metoprolol after med rec. 7. Hyperlipidemia, chronic, presume stable. - Continue Atorvastatin. - Elevated Trigs and LDL of 98 today. CODE STATUS: DNR/DNI per the patient. Dispo: Discharge tomorrow if Potassium normalized with oral Lasix. Pain Evaluation: Adequate Pain Control GI Prophylaxis: Proton Pump Inhibitor VTE Prophylaxis: Other (Apixaban) VTE Mechanical Devices: Intermittant Pneumatic CD Resuscitation Status: DNR/DNI:Do Not Resuscitate/Intubate Attending Statement The patient was seen and examined together with Dr. Hernandez on 05/08/2016 and I agree with the history, exam and plan as outlined in the note above. Barrie Hernandez DO May 08, 2016 10:57 Kane Thornton MD May 09, 2016 11:05
[2016-05-08] MEDS ORDERED: Insulin GLARgine 100 Unit/mL Syringe SUBQ SCH (21:00)
[2016-05-09 00:06] VITALS: BP 113/65; PULSE 72; RESP 20; O2SAT 92
--- NOTE | 2016-05-09 00:20 | PROG NOTE ---
[address] [address] PROGRESS NOTE PATIENT: JOSETTE JASSO : 1930 MR#: [id number] ADMIT: 05/06/2016 JOB ID: [id number] DATE: 05/08/2016 CHIEF COMPLAINT: Shortness of breath. SUBJECTIVE: Patient says she is doing better, but is still not quite back to feeling normal. She still has some shortness of breath. OBJECTIVE: Vital signs: Temperature 36.6, blood pressure 110/66 up to 140/79, pulse is 75 beats per minute. She is satting 90% to 93% on room air. General: A well-nourished woman in no apparent distress. Neck: Supple. No lymphadenopathy. Heart: Normal S1, S2. No murmurs. Lungs: Clear to auscultation anteriorly. Abdomen is soft. No lower extremity edema. LABORATORIES: Reviewed. CBC is normal. Potassium was low at 3.3, magnesium was 1.9. Echocardiogram showed ejection fraction of 40% to 45% with less dynamic left ventricle and focal wall motion abnormalities involving mid inferior, mid inferior septal, distal septal, and mid anterior septal hypokinesis. Interpretation of this study is challenging due to dyssynchrony in the setting of chronic BiV pacing. ASSESSMENT/PLAN: An 86-year-old woman with acute decompensated heart failure and orthopnea. Her labs show negative troponin x1. I suspect that her worsening cardiomyopathy and heart failure symptoms have to do with chronic RV pacing. This could also be due to thyroid hormone over replacement. She is not quite ready to be switched over to p.o. Lasix in my opinion, so she received another dose of IV Lasix. I anticipate discharge, July 09, 2016, with torsemide 40 mg daily, Toprol-XL 100 mg twice a day, apixaban 5 mg daily, and her chronic dose of Lipitor. Thank you very much for the opportunity to evaluate her.
[2016-05-09 05:21] VITALS: BP 137/78; PULSE 72; RESP 18; O2SAT 96
[2016-05-09 06:29] VITALS: PULSE 72
[2016-05-09 07:00] LABS: MONOCYTES % (AUTO) 13.8 % (4-12); Mean Corpuscular Hemoglobin 28.4 pg (27.0-35.0); Mean Corpuscular Volume 84.2 fL (81-100); NEUTROPHILS % (AUTO) 41.8 % (40-74); Platelet Count 274 bil/L (150-400)
[2016-05-09] MEDS: Potassium Chloride 20 mEq SR Tablet PO SCH (07:47)
[2016-05-09] MEDS: Insulin LISPRO 300 Unit/3 mL Inj SUBQ SCH ×2 (07:48→11:53)
[2016-05-09] MEDS ORDERED: Furosemide 10 mg/mL 4 mL Inj IVPUSH SCH (08:30)
[2016-05-09] MEDS: Sodium Chloride LOK Flush 10 mL Syringe IVFLUSH SCH (09:17)
[2016-05-09] MEDS: MeTOProlol XL 50 mg ER24 Tablet PO SCH (09:19)
[2016-05-09] MEDS ORDERED: ATOR40TA69 PO (09:55)
[2016-05-09] MEDS ORDERED: TORS20TA3 PO (10:10)
[2016-05-09] MEDS ORDERED: LEVO100T6 PO (10:10)
[2016-05-09] MEDS ORDERED: TOP100 PO (10:10)
[2016-05-09] MEDS ORDERED: WALK1EAC55 MC (10:11)
--- NOTE | 2016-05-09 10:15 | PCM.DICHF ---
Dory Lweis DO 05/09/16 1014: CHF Discharge Instructions Date of Service: May 09, 2016 Dates of Hospitalization Date of Hospital Admission May 06, 2016 at 20:54 Date of Discharge: May 09, 2016 Providers Admitting Physician: Allan Peter MD Primary Care Physician: Jaquan Santamaria DO Attending Physician: Allan Peter MD Diagnosis at Time of Discharge Diagnosis at time of discharge 1. Progressive dyspnea, acute on chronic, present on admission, Improved 2. Acute on chronic CHF exacerbation, present on admission, active. 3. Chronic atrial fibrillation, present on admission, stable. 4. Insulin-using Diabetes Mellitus, Type 2, chronic,uncontrolled. 5. Surgical induced hypothyroidism, chronic. 6. HTN, chronic, stable. 7. Hyperlipidemia, chronic, presume stable. Problems: Labs Ejection Fraction 40-45% Laboratory Tests Test Range/Units 05/06/16 18:23 05/07/16 05:40 05/08/16 05:27 05/09/16 06:00 Hemoglobin A1c 4.8-5.6 % 6.0 Troponin T 0.0-0.011 ug/L < 0.010 Pro-B-Type Natriuretic Peptide 0-738 pg/mL 8607 Total Bilirubin 0.0-1.2 mg/dL 0.4 Aspartate Amino Transf (AST/SGOT) 0-50 U/L 24 Alanine Aminotransferase (ALT/SGPT) 0-32 U/L 27 Alkaline Phosphatase 25-165 U/L 76 Total Protein 6.4-8.4 g/dL 6.2 Albumin 3.4-5.0 g/dL 3.3 Triglycerides Level 0-149 mg/dL 203 Cholesterol Level 100-199 mg/dL 189 LDL Cholesterol, Calculated 0-99 mg/dL 98.400 VLDL Cholesterol mg/dL 40.600 HDL Cholesterol >39 mg/dL 50 Cholesterol/HDL Ratio 0.0-4.4 3.78 Thyroid Stimulating Hormone (TSH) 0.450-4.500 uIU/mL 0.258 Free Thyroxine 0.82-1.77 ng/dL 1.89 Magnesium Level 1.6-2.6 mg/dL 1.9 Sodium Level 134-144 mEq/L 140 Potassium Level 3.5-5.2 mEq/L 4.1 Chloride Level 97-108 mEq/L 100 Carbon Dioxide Level 18-29 mmol/L 25 Blood Urea Nitrogen 8-27 mg/dL 17 Creatinine 0.57-1.00 mg/dL 0.89 Estimat Glomerular Filtration Rate >59 mL/min 87 Glucose Level 60-99 mg/dL 185 Calcium Level 8.5-10.1 mg/dL 8.0 Discharge Medications Other Medication Instructions You have received instructions on the medications your physician has prescribed at discharge. A list of these medications has been provided to you. Keep this and a list of all current medications with you. Keep the dates when you received the Flu and Pneumococcal (Pneumonia) Vaccines. Last known date of receiving Flu Vaccine FALL 2015 Last known date of receiving Pneumococcal (Pneumonia) Vaccine 2010 Diet CHF Discharge Diet: Fluid restriction, Low fat, Low Sodium, Diabetic Diet Instructions CHF Low Salt diet ( 2 grams or less sodium/day) Choose foods and drinks with low or no salt. Remove salt shaker from the table. Read Nutritional Facts labels. Activity CHF Discharge Activity: Balance rest and activity, Activity as energy allows Weight Monitoring 1. Weigh yourself every day at the same time and write it down. 2. Take your weight log to your doctor visits. 3. Call your doctor if you gain 3-5 pounds over 2-3 days. 4. Your weight today is 177.91 lbs. Additional Instructions Smoking--Tobacco Use If you smoke, you are strongly encouraged to stop. If you have recently quit smoking, CONGRATULATIONS. For further information to stop smoking or to remain smoke-free, Follow Up Plan Follow Up Plan Please reduce your levothyroxine dose to 100 mcg. You will need to have your TSH rechecked by your PCP and your dose adjusted further. You are started on a diuretic, torsemide, as well as a betal nallely. Please take these medications as prescribed. Please stop taking HCTZ. Your scripts were sent to the pharmacy. Please follow up with your PCP in one week. Please follow up with cardiology in 2-3 weeks. Cardiology Follow-up Provider: 2 weeks Report or call your Doctor REPORT TO YOUR DOCTOR OR SEEK MEDICAL ATTENTION: *Shortness of breath or have more difficulty breathing. *Swelling of your feet, ankles, hands or abdomen. *Feeling tired with normal activity or experiencing dizziness or fainting. *Trouble sleeping or waking up feeling short of breath or coughing. *Chest pain or pressure. *Weight gain of 3-5 pounds over 2-3 days. *Inability to take medications or follow treatment plan Heart Attach warning signs HEART ATTACK WARNING SIGNS * Chest discomfort. *Discomfort or pain in one or both arms, back, neck, jaw or stomach. *Shortness of breath. *Breaking out in a cold sweat, nausea, or lightheadedness. If you're having heart attack warning signs: CALL . DON'T WAIT MORE THAN A FEW MINUTES - 5 MINUTES AT MOST - TO CALL . Kane Thornton MD 05/09/16 1105: Dory Lewis DO May 09, 2016 10:14 Kane Thornton MD May 09, 2016 11:05
[2016-05-09 10:50] VITALS: BP 110/78; PULSE 68; RESP 18; O2SAT 96
--- NOTE | 2016-05-09 21:38 | PCM.DC.MED ---
Discharge Summary Date of Service May 09, 2016 Dates of Hospitalization Date of Hospital Admission May 06, 2016 at 20:54 Date of Discharge: May 09, 2016 Providers: Admitting Physician: Allan Peter MD Primary Care Physician: Jaquan Santamaria DO Attending Physician: Allan Peter MD Diagnosis at Time of Discharge Diagnosis at Time of Discharge 1. Progressive dyspnea, acute on chronic, present on admission, Improved 2. Acute on chronic CHF exacerbation, present on admission, active. 3. Chronic atrial fibrillation, present on admission, stable. 4. Insulin-using Diabetes Mellitus, Type 2, chronic,uncontrolled. 5. Surgical induced hypothyroidism, chronic. 6. HTN, chronic, stable. 7. Hyperlipidemia, chronic, presume stable. Consultations Cardiology Procedures XRay, CTs & MRIs X-RAY CHEST ONE VIEW, PORTABLE IMPRESSION: Mild cephalization of pulmonary vasculature possibly representing early CHF. Dictated by: Claudia Arreola MD, PhD on 05/06/2016 at 18:25 Approved by: Claudia Arreola MD, PhD on 05/06/2016 at 18:26 ECG 12 Lead Afib with rate of 71 on EKG. Ventricular paced rhythm. Cardiac Echo Impression Interpretation Summary Afib with V pacing at 70 bpm. Normal LV size and mild concentric LVH. There is basal inferior and basal inferoseptal akinesis; there is mid-inferior, mid- inferoseptal, distal septal, mid-anteroseptal hypokinesis. All remaining segments demonstrate normal wall motion. EF is 40-45%. Severe LA enlargement; mild RA enlargement. Mitral valve leaflets are normal. There is moderate central MR. Aortic valve leaflets are normal; no regurgitation or stenosis. Tricuspid valve leaflets are normal with a pacing lead traversing the valve; there is moderate central tricuspid regurgitation. Estimated PA systolic pressure is 32 mm Hg assuming RA pressure of 8 mm Hg. Comparison to prior echo is difficult because prior echo was done without the benefit of echo- contrast Definity. Also, pt is 100% ventricularly paced during current study, whereas she was V sensed during prior study. Compared to prior study performed LV is markedly less dynamic. Inferior focal wall motion abnormalities are more pronounced; septal wall motion abnormalities are also more pronounced. Brief History From Dr. Moreno's H and P: "Ms. Fe Tellez is an 86 year old pleasant woman with history of DM, HTN, CHF, A-fib, and tachybradycardia syndrome s/p dual chamber pacemaker placement who presents to the ED via EMS complaining of progressively worsening SOB in the last 3 months. Before bed last night, she could not breathe and felt like, "she was going to ." She was unable to fall asleep due to SOB, diaphoresis, and difficulty breathing. She was going to call an ambulance but she just moved to a new apartment and the phone wasn't set up yet. She took her home dose of Metoprolol and HCTZ and was finally able to fall asleep. Today, she saw her PCP, Dr. Jaquan Santamaria, and was sent to the ED from his office. Patient reports to have chronic dyspnea for months, but it has not been this bad. She does not use O2 at home and is pretty independent at baseline. She uses Albuterol inhaler as needed for SOB. Patient reports worsening lower extremity edema, orthopnea, and weight gain, but denies cough, chest pain, fever, chills, nausea, vomiting, abdominal pain, or headache. No history of COPD or asthma. She had been to the hospital several times for the Afib, but this is the first time she is here for CHF. She reports to have an Echo done 2 weeks ago, but it is not on her record. She is on Apixaban for anticoagulation. She got both the Flu and Pneumonia shots this year, but got Flu 2-3 months ago. She used to inject Lantus 5 units TID, but has stopped doing so 6 weeks ago due to low blood glucose at night. In the ED, she had temp 36.7, Pulse 81, RR 25, BP 158/86, and SAT 94% on 1L. WBC wnl. CMP normal except for BG of 344. ProBNP 8607. CXR is suggestive of CHF. Patient received a dose of Lasix 40" Hospital Course 86 year old pleasant woman with history of DM, HTN, CHF, A-fib, and tachybradycardia syndrome s/p dual chamber pacemaker placement who presents to the ED via EMS complaining of worsening SOB in the last 3 months. 1. Progressive dyspnea, acute on chronic, present on admission, Improved - Likely due to chronic progressive dyspnea, mild CHF exacerbation, and increased stress and anxiety of living alone now - O2 supplement - Albuterol inhaler PRN 2. Acute on chronic systolic CHF exacerbation, present on admission, active. - Patient presented with worsening lower extremity edema ("skinny legs" at baseline), increasing dyspnea, orthopnea, and fatigue. - BNP of 8607 and CXR consistent with CHF - Patient was not on Lasix at home. She received one dose of Lasix 40mg IV in the ER. Transitioned to PO Lasix daily - Resumed home dose of Metoprolol and Lisinopril - Strict I/O and daily standing weight. - Echo results as above. 3. Chronic atrial fibrillation, present on admission, stable. - Rate controlled with Metoprolol. - Continued Metoprolol and Apixaban - Monitored on Telemetry 4. Insulin-using Diabetes Mellitus, Type 2, chronic,uncontrolled. -Last HgbA1c 13.0 in 11/2015 per [employer]. -Resumed 30 units of HS Lantus. 5. Surgical induced hypothyroidism, chronic. - Check TSH - 0.22 and free T4 - 1.89 - Levothyroxine reduced to 100mcg daily. 6. HTN, chronic, stable. -Resumed home Amlodipine, Lisinopril, HCTZ, Metoprolol after med rec. 7. Hyperlipidemia, chronic, presume stable. - Continued Atorvastatin. Exam Vital Signs (Last) Date Time Temp Pulse Resp B/P Pulse Ox O2 Delivery O2 Flow Rate FiO2 05/09/16 10:50 36.6 68 18 110/78 96 Room Air 05/07/16 14:00 Exam General: Well-developed, well-nourished, pleasant elderly female who appears in NAD while laying down at 45 degrees, appropriately interactive HEENT: Anicteric sclerae, moist conjunctivae, and no lid lag. Neck: Supple with full range of motion. No JVD noted at 45 degrees Cardiovascular: Chest wall with pacemaker implant palpated. Regular rate and rhythm with no murmurs, rubs, or gallops appreciated Pulmonary: Clear to auscultation bilaterally. No wheezes or rhonchi. Normal respiratory effort Abdomen: Bowel tones present. Soft, nontender, nondistended. Extremities: Trace bilateral pedal edema, No clubbing, cyanosis Neurological: Cranial nerves grossly intact. Normal muscle strength, tone, and bulk. Psychiatric: Normal mood and affect. Alert and oriented to person, place, and time. Test 05/06/16 18:23 05/07/16 05:40 05/08/16 05:00 05/08/16 05:27 Activated Partial Thromboplast Time 25.0sec (22.8-33.0) Hemoglobin A1c 6.0% (4.8-5.6) Troponin T < 0.010ug/L (0.0-0.011) Pro-B-Type Natriuretic Peptide 8607pg/mL (0-738) Total Bilirubin 0.4mg/dL (0.0-1.2) Aspartate Amino Transf (AST/SGOT) 24U/L (0-50) Alanine Aminotransferase (ALT/SGPT) 27U/L (0-32) Alkaline Phosphatase 76U/L (25-165) Total Protein 6.2g/dL (6.4-8.4) Albumin 3.3g/dL (3.4-5.0) Triglycerides Level 203mg/dL (0-149) Cholesterol Level 189mg/dL (100-199) LDL Cholesterol, Calculated 98.400mg/dL (0-99) VLDL Cholesterol 40.600mg/dL HDL Cholesterol 50mg/dL (>39) Cholesterol/HDL Ratio 3.78 (0.0-4.4) Thyroid Stimulating Hormone (TSH) 0.258uIU/mL (0.450-4.500) Free Thyroxine 1.89ng/dL (0.82-1.77) Urine Color Straw (YELLOW) Urine Appearance Clear (CLEAR,HAZY) Urine pH 6.0 (5.0-8.0) Urine Specific [place] 1.005 (1.003-1.035) Urine Protein Negativemg/dL (NEG,TRACE) Urine Glucose (UA) 500mg/dL (NEGATIVE) Urine Ketones Negativemg/dL (NEGATIVE) Urine Occult Blood Negative (NEGATIVE) Urine Nitrite Negative (NEGATIVE) Urine Bilirubin Negative (NEGATIVE) Urine Urobilinogen Normalmg/dL (NORMAL) Urine Leukocyte Esterase Small (NEGATIVE) Urine RBC 0-2/hpf (0-2) Urine WBC 11-50/hpf (0-5) Urine Epithelial Cells Few/hpf (NONE-MOD) Urine Crystals None seen (NONE SEEN) Urine Bacteria Moderate/hpf (NONE-FEW) Urine Hyaline Casts None/lpf (NONE) Urine Granular Casts None seen (NONE SEEN) Urine Waxy Casts None seen (NONE SEEN) Urine Red Blood Cell Casts None seen (NONE SEEN) Urine White Blood Cell Casts None seen (NONE SEEN) Urine Mucus None seen (None Seen) Urine Trichomonas None seen (NONE SEEN) Urine Yeast None (NONE SEEN) Urinalysis Comment None Urine Culture Reflexed Indicated Magnesium Level 1.9mg/dL (1.6-2.6) Test 05/09/16 06:00 White Blood Count 7.3th/mm3 (3.8-10.1) Red Blood Count 4.86mil/mm3 (3.90-5.20) Hemoglobin 13.8g/dL (12.0-15.6) Hematocrit 40.9% (35.0-46.0) Mean Corpuscular Volume 84.2fL (81-100) Mean Corpuscular Hemoglobin 28.4pg (27.0-35.0) Mean Corpuscular Hemoglobin Concent 33.7% (32.0-37.0) Red Cell Distribution Width 19.0% (12.3-15.4) Platelet Count 274bil/L (150-400) Neutrophils (%) (Auto) 41.8% (40-74) Lymphocytes (%) (Auto) 40.3% (14-46) Monocytes (%) (Auto) 13.8% (4-12) Eosinophils (%) (Auto) 3.0% (0-5) Basophils (%) (Auto) 1.0% (0-3) Sodium Level 140mEq/L (134-144) Potassium Level 4.1mEq/L (3.5-5.2) Chloride Level 100mEq/L (97-108) Carbon Dioxide Level 25mmol/L (18-29) Blood Urea Nitrogen 17mg/dL (8-27) Creatinine 0.89mg/dL (0.57-1.00) Estimat Glomerular Filtration Rate 87mL/min (>59) Glucose Level 185mg/dL (60-99) Calcium Level 8.0mg/dL (8.5-10.1) Discharge Medications Discharge Medications Acetaminophen (Acetaminophen) 325 Mg Tablet 650 MG PO HS (Reported) NEEDED Apixaban (Eliquis) 5 Mg Tablet 5 MG PO BID (Reported) Atorvastatin Calcium (Atorvastatin Calcium) 40 Mg Tablet 80 MG PO HS Prescribed by: ELIZABETH LEWIS DO Calcium Carbonate/Vitamin D3 (Liquid Calcium with Vitamin D) 1 Each Capsule 2 EACH PO DAILY (Reported) Cholecalciferol (Vitamin D3) (Vitamin D) 1,000 Unit Tablet 1,000 UNIT PO DAILY ( Reported) Esomeprazole Magnesium (Nexium) 40 Mg Capsule.dr 40 MG PO DAILY (Reported) Insulin Glargine (Lantus U100 Insulin Vial) 100 Unit/Ml Vial 30 UNIT SUBQ DAILY (Reported) Levothyroxine (Levothyroxine) 100 Mcg Tablet 100 MCG PO DAILYAC Prescribed by: ELIZABETH LEWIS DO Metformin (Glucophage) 1,000 Mg Tablet 1,000 MG PO BID (Reported) Metoprolol Succinate ER (Metoprolol Succinate ER) 100 Mg Tab.er.24h 100 MG PO BID Prescribed by: AYO HINDS Metoprolol Succinate ER (Toprol XL) 100 Mg Tablet 100 MG PO BID Prescribed by: ELIZABETH LEWIS DO Torsemide (Torsemide) 20 Mg Tablet 40 MG PO DAILY Prescribed by: ELIZABETH LEWIS DO As needed Albuterol HFA (Proair HFA) 8.5 Gm Hfa.aer.ad 2 PUFFS INHALATION Q4H PRN PRN For Shortness of Breath (Reported) Loratadine (Claritin) 10 Mg Capsule 10 MG PO DAILY PRN PRN For Congestion ( Reported) Durable Medical Equipment Walker (Ultra-Light Rollator) 1 Each Each 1 EACH [facility] (DME) Prescribed by: ELIZABETH LEWIS DO Followup Plan Follow-up plan Please reduce your levothyroxine dose to 100 mcg. You will need to have your TSH rechecked by your PCP and your dose adjusted further. You are started on a diuretic, torsemide, as well as a betal nallely. Please take these medications as prescribed. Please stop taking HCTZ. Your scripts were sent to the pharmacy. Please follow up with your PCP in one week. Please follow up with cardiology in 2-3 weeks. Elizabeth Lewis DO May 09, 2016 21:38 You are started on a diuretic, torsemide, as well as a betal nallely. Please take these medications as prescribed. Please stop taking HCTZ. Your scripts were sent to the pharmacy. Please follow up with your PCP in one week. Please follow up with cardiology in 2-3 weeks. Elizabeth Lewis DO May 09, 2016 21:38
== END 2016-05-09 12:40 | disposition home or self-care (01) | DRG 293 ==
LOC: SED 17:37 → EDBD 17:37 → OBSVTOIN 20:54 → MPC 20:54
PROVIDERS: ADMIT Hospitalist; ATTEND Hospitalist
DX: I50.23 Acute on chronic systolic (congestive) heart failure (principal); Z79.84 Long term (current) use of oral hypoglycemic drugs; Z79.4 Long term (current) use of insulin; Z87.891 Personal history of nicotine dependence; Z95.0 Presence of cardiac pacemaker; I48.2 Chronic atrial fibrillation; E11.65 Type 2 diabetes mellitus with hyperglycemia; Z91.19 Patient's noncompliance with other medical treatment and regimen; E89.0 Postprocedural hypothyroidism; I10 Essential (primary) hypertension; E78.5 Hyperlipidemia, unspecified; Z66 Do not resuscitate